=== PATIENT | male | born 1970 | race Caucasian/White ===

== ENCOUNTER → 2021-03-21 | Outpatient (CLI) | payer OTHER ==
[~2021-03-21] MED LIST: REGADENOSON 0.4 MG/5 ML SYRINGE IV ONE
--- NOTE | 2021-03-21 14:28 | EST ---
EXERCISE STRESS AGE: 50 SEX: M HT: 5'10" WT: 260 lbs PROTOCOL: Lexiscan STAGE: NA DURATION OF EXERCISE: 5 minutes HEART RATE REST: 60 BLOOD PRESSURE REST: 164/87 MAXIMUM HEART RATE ACHIEVED: 73 MAXIMUM BLOOD PRESSURE: 164/87 85% MPHR: 145 100% MPHR: 170 METS: NA INDICATIONS: Angina Pectoris CLINICAL INFORMATION: Baseline EKG revealed normal sinus rhythm without significant ST-T changes. With Lexiscan administration, heart rate changed from 60 to 89 beats per minute. Blood pressure changed from 164/87 to 127/90 and came back to baseline. Patient did not have any significant symptoms. EKG was unremarkable. By EKG criteria, this is an unremarkable Lexiscan stress test. The nuclear scan results, which are more pertinent, will be reported by the radiologist. [id number] / IJN: [id number] /
--- NOTE | 2021-03-21 15:32 | NM ---
EXAMINATION TYPE: NM stress lexiscan cardiolite DATE OF EXAM: 03/21/2021 COMPARISON: NONE HISTORY: Chest pain, angina pectoris TECHNIQUE: After the intravenous administration of 9.4 mCi Tc 99m Sestamibi - Cardiolite resting SPE CT images acquired 45 minutes post injection. At peak stress 25.4 mCi Tc 99m Sestamibi - Stress images obtained 30 minutes post injection The patient was stressed with 0.4mg Lexiscan. FINDINGS: No fixed defects are evident No reversible stress defects on Spect images Wall motion is normal Ejection fraction is calculated to be 55 %. IMPRESSION: 1. No stress-induced ischemic changes.
== END | disposition home or self-care (01) ==
LOC: RADNMMAIN 07:53
PROVIDERS: ATTEND Family Medicine
DX: R07.9 Chest pain, unspecified (principal); I20.9 Angina pectoris, unspecified
CPT/HCPCS: 93017; 78452; A9500; J2785